=== PATIENT | female | born 1955 | race Caucasian/White ===

== ENCOUNTER 2017-09-09 05:36 | Day surgery (SDC) | payer OTHER ==
[~2017-09-09] VITALS: Ht 160 cm; Wt 71.0 kg
[~2017-09-09 05:36] MED LIST: CHOL2000 PO; THYR60TA PO
[2017-09-09] MEDS ORDERED: LACTATED RINGERS 1,000 ML IV SCH (06:06)
[2017-09-09 06:26] VITALS: BP 135/86
[2017-09-09] MEDS ORDERED: LIDOCAINE/PF 1%, 30ML ONE (07:04)
[2017-09-09] MEDS ORDERED: INDIGO CARMINE 0.8%, 5ML ONE (07:04)
[2017-09-09] MEDS ORDERED: THROMBIN 5,000 UNIT VIAL TP ONE (07:04)
[2017-09-09] MEDS ORDERED: FUROSEMIDE 20 MG/2 ML ONE (07:04)
[2017-09-09] MEDS ORDERED: EPINEPHRINE 1 MG/ML, 1ML ONE (07:05)
[2017-09-09] MEDS ORDERED: NEOMY/POLYMYXIN B GU IRR. 1 ML IRRIG ONE (07:05)
[2017-09-09] MEDS ORDERED: MIDAZOLAM 1 MG/ML, 2ML ONE (07:10)
[2017-09-09] MEDS ORDERED: FENTANYL PF 100 MCG/2ML ONE (07:10)
[2017-09-09] MEDS ORDERED: KETOROLAC 30 MG/1 ML ONE (07:29)
[2017-09-09] MEDS ORDERED: PROPOFOL 10 MG/ML, 20ML ONE ×2 (07:29→09:00)
[2017-09-09] MEDS ORDERED: ROCURONIUM 10 MG/ML,10ML ONE (07:29)
[2017-09-09] MEDS ORDERED: SUCCINYLCHOLINE 20 MG/ML, 10ML ONE ×2 (07:29→09:00)
[2017-09-09] MEDS ORDERED: OXYcodone IR 5MG TABLET PO ONE (07:30)
[2017-09-09] MEDS ORDERED: ACETAMINOPHEN 500 MG TABLET PO ONE (07:30)
[2017-09-09] MEDS ORDERED: ONDANSETRON ODT 8 MG PO ONE (07:30)
[2017-09-09] MEDS ORDERED: FAMOTIDINE 20 MG TABLET PO ONE (07:30)
[2017-09-09] MEDS ORDERED: GABAPENTIN 300 MG CAPSULE PO ONE (07:30)
[2017-09-09] MEDS ORDERED: FENTANYL PF 100 MCG/2ML IV PRN (09:00)
[2017-09-09] MEDS ORDERED: ALBUTEROL SULFATE 2.5 MG/3 ML NPPB PRN (09:00)
[2017-09-09] MEDS ORDERED: OXYcodone 5 MG/5 ML ORAL.SOL UDC PO PRN (09:00)
[2017-09-09] MEDS ORDERED: GLYCOPYRROLATE 0.2MG/1ML, 5ML ONE (09:00)
[2017-09-09] MEDS ORDERED: DEXAMETHASONE 4 MG/ML, 1ML ONE (09:00)
[2017-09-09] MEDS ORDERED: HALOPERIDOL 5 MG/ML IV PRN (09:00)
[2017-09-09] MEDS ORDERED: HYDROmorphone 1 MG/ML, 1ML IV PRN (09:00)
[2017-09-09] MEDS ORDERED: EPHEDRINE 50 MG/ML, 1ML IVPush PRN (09:00)
[2017-09-09] MEDS ORDERED: HYDROcodone/APAP 7.5-325MG/15ML UDC PO PRN (09:00)
[2017-09-09] MEDS ORDERED: MEPERIDINE/PF 25MG/0.5ML IVPush PRN (09:00)
[2017-09-09] MEDS ORDERED: NEOSTIGMINE 1 MG/ML, 10ML ONE (09:00)
[2017-09-09] MEDS ORDERED: LABETALOL 5MG/ML, 20ML IV PRN (09:00)
[2017-09-09] MEDS ORDERED: MIDAZOLAM 1 MG/ML, 2ML IV PRN (09:00)
[2017-09-09] MEDS ORDERED: PROMETHAZINE 25 MG/ML, 1ML IV PRN (09:00)
[2017-09-09] MEDS ORDERED: hydrALAzine 20 MG/ML, 1ML IV PRN (09:00)
[2017-09-09] MEDS ORDERED: ONDANSETRON 2MG/ML, 2ML IVPush PRN (11:30)
[2017-09-09] MEDS ORDERED: DIPHENHYDRAMINE 50 MG/ML, 1ML IVPush PRN (11:30)
== END 2017-09-09 18:20 ==
LOC: OUT 05:36
PROVIDERS: ATTEND Obstetrics & Gynecology Gynecology
DX: N81.4 Uterovaginal prolapse, unspecified (principal); N39.3 Stress incontinence (female) (male)
CPT/HCPCS: 36415; 85014; 88307; J0171; J1100; J1885; J2250; J2704; J2710; J3010; J3490; Q0162; C1771; J0330; J1940; J7120